=== PATIENT | male | born 1985 | race Caucasian/White ===

== ENCOUNTER 2017-09-16 18:45 | Emergency (ER) | payer SELFPAY ==
[~2017-09-16] VITALS: Ht 170.2 cm; Wt 77.1 kg
[~2017-09-16 18:45] MED LIST: ALPRAZOLAM0.5 M3 PO; SERTRALINE HYD100 MG PO
--- NOTE | 2017-09-16 19:43 | ED HAND/WRIST INJURY COMPLAINT ---
History of Present Illness General Chief Complaint: Hand or Wrist Injury Stated Complaint: "I CUT THE TIP OFF MY FINGER" Source: patient, old records Exam Limitations: no limitations Vital Signs & Intake/Output Vital Signs & Intake/Output Vital Signs Date Time Temp Pulse Resp B/P B/P Pulse O2 O2 Flow FiO2 Mean Ox Delivery Rate 09/16 2044 98.4 77 19 116/78 99 09/16 1907 97.5 81 20 126/80 97 Room Air ED Intake and Output 09/17 0000 09/16 1200 Intake Total 0 Output Total Balance 0 Intake, Oral 0 Patient 170 lb Weight Weight Reported by Patient Measurement Method Allergies Coded Allergies: No Known Allergies (09/16/17) Reconcile Medications Alprazolam 0.5 MG TAB 1 TAB PO PRN ANXIETY (Reported) Cephalexin (Keflex) 500 MG CAPSULE 1 CAP PO TID PPX SERTRALINE HCL (Sertraline Hydrochloride) 100 MG TABLET 1 TAB PO DAILY ANXIETY (Reported) Triage Note: TRIAGE: PT TO ER WITH MOTHER C/C LACERATION TO L RING AND INDEX FINGER S/P INJURY WITH A PLANER. L RING FINGER HAS SLICE TO TIP OF FINGER AND THE INDEX FINGER LACERATION GOES INTO NAIL. PATIENT CONCERNED THAT HE CUT THE BONE, UNABLE TO DETERMINE AT TRIAGE. GAUZE PRESSURE TYPE DRESSING APPLIED AT TRIAGE. CONTINUES TO BLEED. Triage Nurses Notes Reviewed? yes Occurred: just prior to arrival Duration: minute(s):, constant, continues in ED Timing: recent history Injury Environment: home Severity: moderate Severity Numbers: 5 Pain/Injury Location: Left: 2nd finger, 4th finger. 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 His last tetanus is unknown is complaining of moderate aching pain over the distal aspect of the fingers. He denies any difficulty with range of motion no numbness or tingling there is no other injury. He is left-hand dominant. He is not taken anything for symptoms. (Ab CHU,Venkata) Past History Travel History Traveled to [place] past 21 day No Medical History Any Pertinent Medical History? 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 No (Venkata Marques) Review of Systems Review of Systems Constitutional: Reports: see HPI. Comments Review of systems: See HPI, All other systems negative. Constitutional, no chills no fever HEENT: no sore throat no congestion Cardiovascular: No chest pain Skin: no rashes, no change in skin Respiratory: no cough GI: No nausea no vomiting, no diarrhea, Muscle skeletal: No joint pain, no back pain Neurologic: , no headache Heme/endocrine: No bruising (Venkata Marques) Physical Exam Physical Exam General Appearance: well developed/nourished, no apparent distress, alert, awake Hand Left: evidence of injury, 2nd finger, 4th finger Hand Right: normal inspection, normal range of motion Comments: Well-developed well-nourished patient in no apparent distress. HEENT: Atraumatic, extraocular motion intact Neck: Supple, FROM Back: FROM Respiratory: No respiratory distress. Patient speaking in full complete sentences. Shoulder: Atraumatic/Stable. FROM . Elbow: Atraumatic/stable. FROM. No laxity Upper arm/Forearm: Atraumatic. Nontender. 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 full Sensation noted to the fingers, FROM of all other fingers and the rest of the hand is atraumatic Pulses: Normal/equal radial pulses bilaterally. Brisk cap refill Lower Extremities: full range of motion Neuro: awake, alert, and oriented to person, place and time. There were no obvious focal neurologic abnormalities. Skin: Warm & dry;No appreciable rash on exposed skin Psych: Mood affect normal, normal memory normal judgment. (Venkata Marques) Progress Differential Diagnosis: dislocation, fracture, tendon inj, amputaion Plan of Care: Current Medications Sig/Suzan Start time Last Medication Dose Stop Time Status Admin Cephalexin 500 MG ONCE ONE 09/16 2044 UNVr (Keflex 500MG Cap) 09/16 2045 Digital block of the left second and fourth finger was performed by myself using lidocaine 1% with good relief the wounds were thoroughly irrigated with normal saline and Betadine peroxide. 11 sutures dissolvable were placed to the left fourth fingertip, the first finger tip had surgicel and sterile dressing applied. Information was provided for follow-up with hand specialist. He was treated with Keflex and tetanus IM here return precautions were discussed at length he feels comfortable with plan cleared for discharge Diagnostic Imaging: Viewed by Me: Radiology Read. Discussed w/RAD: Radiology Read. Radiology Impression: PATIENT: MATY CHINO PRESENT AGE: 31 PATIENT ACCOUNT NO: [id number] : 87 LOCATION: [facility] ORDERING PHYSICIAN: Venkata CHU SERVICE DATE: 09/16/17 EXAM TYPE: RAD - XRY-FINGERS, LEFT EXAMINATION: XR FINGER, LEFT CLINICAL INFORMATION: Laceration question bone involvement. COMPARISON: None TECHNIQUE: 3 views of the hand and fingers FINDINGS: There is an orthopedic dressing overlying the index finger and ring finger minimally obscuring the soft tissues and bone. Index finger: There is irregularity of the soft tissues overlying the distal phalanx indicative of soft tissue laceration\\E\\injury. The bone is intact. Ring finger: Question subtle soft tissue irregularity compatible with laceration\\E\\soft tissue injury. The bone is intact Remaining visualized bones joints and soft tissues are normal IMPRESSION: Bone intact. Probable soft tissue laceration\\E\\ injury of the distal index and ring fingers DICTATED BY: Dale Newman MD DATE/TIME DICTATED:09/16/172011 SLATE SPLITTER:BHARATHI DATE/TIME TRANSCRIBED:09/16/172011 CONFIDENTIAL, DO NOT COPY WITHOUT APPROPRIATE AUTHORIZATION. <Electronically signed in Other Vendor System> SIGNED BY: Dale Newman MD 09/16/172018 (Ab CHU,Venkata) Departure Departure Time of Disposition: 2040 Disposition: HOME OR SELF CARE Condition: Stable Clinical Impression Primary Impression: Finger laceration Referrals: Unknown (PCP/Family) Additional Instructions: Keflex for wound prophylaxis. Keep dressings in place as discussed until Tuesday after that apply Xeroform dressing to your index finger. Follow-up with your hand specialist or hand specialist affiliated with [facility] Dr. Macias. The sutures will dissolve on its own. Return anytime sooner with any concerns or signs of infection: Redness warmth swelling discharge fever chills. Departure Forms: Customer Survey General Discharge Information Prescriptions: Current Visit Scripts Cephalexin (Keflex) 1 CAP PO TID #15 CAP (Venkata Marques) PA/DIGITAL STRATEGIST SENIOR MANAGER Co-Sign Statement Statement: ED Attending supervision documentation- [] I saw and evaluated the patient. I have also reviewed all the pertinent lab results and diagnostic results. I agree with the findings and the plan of care as documented in the PA's/DIGITAL STRATEGIST SENIOR MANAGER's documentation. [x] I have reviewed the ED Record and agree with the PA's/DIGITAL STRATEGIST SENIOR MANAGER's documentation. [] Additions or exceptions (if any) to the PAs/DIGITAL STRATEGIST SENIOR MANAGER's note and plan are summarized below: [] (Janki ALLAN,Zeb Moreno) Procedures Laceration/Wound Repair Laceration/Wound Repair: Wound Location: l 2nd finger Wound's Depth, Shape: linear, superficial Wound Length (cm): 2 Wound Explored: clean, no foreign body removed Irrigated w/ Saline (ccs): 200 Betadine Prep? Yes Anesthesia: digit block Volume Anesthetic (ccs): 5 Wound Repaired With: sutures Suture Size/Type: 5:0 Number of Sutures: 11 Layer Closure? No Sterile Dressing Applied: Yes Date of Last Tetanus: 09/16/17 Tetanus Status: up to date (Venkata Marques)
--- NOTE | 2017-09-16 20:19 | RADIOLOGY REPORT ---
EXAMINATION: XR FINGER, LEFT CLINICAL INFORMATION: Laceration question bone involvement. COMPARISON: None TECHNIQUE: 3 views of the hand and fingers FINDINGS: There is an orthopedic dressing overlying the index finger and ring finger minimally obscuring the soft tissues and bone. Index finger: There is irregularity of the soft tissues overlying the distal phalanx indicative of soft tissue laceration\E\injury. The bone is intact. Ring finger: Question subtle soft tissue irregularity compatible with laceration\E\soft tissue injury. The bone is intact Remaining visualized bones joints and soft tissues are normal IMPRESSION: Bone intact. Probable soft tissue laceration\E\injury of the distal index and ring fingers
[2017-09-16] MEDS ORDERED: KEFLEX500 M1 PO (20:43)
[2017-09-16 20:45] VITALS: BP 116/78
== END 2017-09-16 20:49 ==
LOC: ERH 18:45
DX: S61.211A Laceration without foreign body of left index finger without damage to nail, initial encounter (principal); S61.215A Laceration without foreign body of left ring finger without damage to nail, initial encounter; W27.8XXA Contact with other nonpowered hand tool, initial encounter; Y92.9 Unspecified place or not applicable; Y93.9 Activity, unspecified
CPT/HCPCS: 73140-LT; 90471; 90714